=== PATIENT | male | born 1965 | race African-American/Black ===

== ENCOUNTER 2018-05-28 08:45 | Inpatient (IN) ==
[2018-05-28] MEDS ORDERED: ONDANSETRON 4 MG/2 ML VIAL IV PRN ×2 (09:34→12:18)
[2018-05-28 10:26] LABS: Basophils % 0.2 % (0.0-0.8); Eosinophils % 0.6 % (0.00-10.9); Hematocrit 47.3 VOL% (42.0-52.0); Hemoglobin 15.8 GM/DL (14.0-18.0); Immature Granulocytes % 0.4 %; Immature Granulocytes Absolute 0.02 #; Lymphocytes # 0.6 10*3/uL (1.4-4.0); Lymphocytes % 11.5 % (21.2-54.2); Mean Corpuscular HGB Conc 33.4 GM/DL (32-36); Mean Corpuscular Hemoglobin 30 PG (27-34); Mean Corpuscular Volume 89.2 FL (87-102); Mean Platelet Volume 10.8 FL (9.6-12.0); Monocytes # 0.3 10*3/uL (0.11-0.8); Monocytes % 5.4 % (1.7-12.7); Neutrophils # 4.3 10*3/uL (1.4-7.4); Neutrophils % 81.9 % (38.7-73.9); Platelet Count 167 T/CUMM (130-400); Red Cell Distribution Width 12.1 % (9.3-17.3); White Blood Count 5.2 T/CUMM (4-12)
[2018-05-28 10:32] LABS: PT Patient Result 10.9 SECS; Partial Thromboplastin Time 21.2 SECS (0-40)
[2018-05-28 10:39] LABS: Apearance,Urine CLEAR (Clear); Bilirubin,Urine Negative (Negative); Blood, Urine Negative (Negative); Glucose,Urine (UA) >=500 mg/dL (Negative); Ketones,Urine 5 mg/dL (Negative); Mucus,Urine Occasional /LPF (Occasional); Nitrite,Urine Negative (Negative); Protein,Urine Negative; RBC,Urine <1 /HPF (0-4); Squamous Epithelial Cell,Urine Occasional /HPF (0-10); Urine Color Yellow (Yellow); Urine Specific Gravity 1.018 (1.001-1.035); Urine Urobilinogen < 2.0 EU/DL (0.2-1.0); WBC,Urine <1 /HPF (0-6)
[2018-05-28 10:40] LABS: Alanine Aminotransferase 23 U/L (16-61); Albumin 3.8 G/DL (3.4-5.0); Alkaline Phosphatase 193 U/L (45-117); Aspartate Amino Transferase 17 U/L (0-37); Blood Urea Nitrogen 10 MG/DL (7-18); Calcium 8.4 MG/DL (8.5-10.1); Glucose 217 MG/DL (74-106); Potassium 4.1 MMOL/L (3.5-5.1); Sodium 136 MMOL/L (136-145); Total Protein 7.6 G/DL (6.4-8.3)
[2018-05-28 11:07] LABS: Barbiturates Screen,Urine Negative (Negative); Benzodiazepines Screen,Urine Negative (Negative); Cannabinoid Screen,Urine Negative (Negative); Opiate Screen,Urine Positive (Negative); Phencyclidine Screen,Urine Negative (Negative)
[2018-05-28] MEDS ORDERED: LABETALOL 20 MG/4 ML SYRINGE IV PRN (12:22)
[2018-05-28] MEDS ORDERED: ENOXAPARIN 40 MG/0.4 ML SYRINGE SUBCUT SCH (12:30)
[2018-05-28 13:05] LABS: Risk Ratio 4.33; VLDL CHOLESTEROL 17.4 MG/DL
[2018-05-28] MEDS: ACETAMINOPHEN 325 MG TABLET PO PRN (15:13)
[2018-05-28] MEDS: SODIUM CHLORIDE 0.9% 1,000 ML IV SCH ×2 (15:15→23:30)
[2018-05-28] MEDS ORDERED: GLUCAGON 1 MG VIAL IM PRN (15:44)
[2018-05-28] MEDS ORDERED: DEXTROSE 50% 25 GM/50 ML SYRINGE IV PRN (15:44)
[2018-05-28] MEDS: NEBIVOLOL 10 MG TABLET PO SCH (16:55)
[2018-05-28] MEDS: amLODIPine 5 MG TABLET PO SCH (16:56)
[2018-05-28] MEDS: glyBURIDE 5 MG TABLET PO SCH (18:16)
[2018-05-28] MEDS: levETIRAcetam 250 MG TABLET PO SCH (20:27)
[2018-05-28] MEDS: PHENYTOIN ER 100 MG CAPSULE PO SCH (20:27)
[2018-05-28] MEDS: ENOXAPARIN 40 MG/0.4 ML SYRINGE SUBCUT SCH (20:27)
[2018-05-29 05:00] LABS: Basophils % 0.2 % (0.0-0.8); Eosinophils % 0.5 % (0.00-10.9); Hematocrit 45.3 VOL% (42.0-52.0); Hemoglobin 15.3 GM/DL (14.0-18.0); Immature Granulocytes % 0.2 %; Immature Granulocytes Absolute 0.01 #; Lymphocytes # 0.9 10*3/uL (1.4-4.0); Lymphocytes % 15.7 % (21.2-54.2); Mean Corpuscular HGB Conc 33.8 GM/DL (32-36); Mean Corpuscular Hemoglobin 30 PG (27-34); Mean Corpuscular Volume 88.5 FL (87-102); Monocytes # 0.5 10*3/uL (0.11-0.8); Monocytes % 9.4 % (1.7-12.7); Neutrophils # 4.2 10*3/uL (1.4-7.4); Platelet Count 195 T/CUMM (130-400); Red Blood Count 5.12 MC/CUMM (3.8-5.5); Red Cell Distribution Width 11.9 % (9.3-17.3); White Blood Count 5.7 T/CUMM (4-12)
[2018-05-29 05:21] LABS: Calcium 8.4 MG/DL (8.5-10.1); Osmolality,Calculated 275.7 MOS/KG (273-304); Potassium 3.4 MMOL/L (3.5-5.1)
[2018-05-29] MEDS: NEBIVOLOL 10 MG TABLET PO SCH (08:46)
[2018-05-29] MEDS: PHENYTOIN ER 100 MG CAPSULE PO SCH ×2 (08:46→20:22)
[2018-05-29] MEDS: OLMESARTAN 20 MG TABLET PO SCH (08:46)
[2018-05-29] MEDS: levETIRAcetam 250 MG TABLET PO SCH ×2 (08:47→20:22)
[2018-05-29] MEDS: ASPIRIN EC 81 MG TABLET PO SCH (08:47)
[2018-05-29] MEDS: PANTOPRAZOLE 40 MG TABLET PO SCH (08:47)
[2018-05-29] MEDS: amLODIPine 5 MG TABLET PO SCH (08:47)
[2018-05-29] MEDS: glyBURIDE 5 MG TABLET PO SCH ×2 (08:48→18:26)
[2018-05-29] MEDS: SODIUM CHLORIDE 0.9% 1,000 ML IV SCH (08:51)
[2018-05-29] MEDS ORDERED: CARVEDILOL 25 MG TABLET PO SCH (09:00)
[2018-05-29] MEDS: POTASSIUM CHLORIDE 20 MEQ TABLET PO PRN (14:47)
[2018-05-29] MEDS: ACETAMINOPHEN 325 MG TABLET PO PRN (15:50)
[2018-05-29] MEDS ORDERED: DEXTROSE 50% 25 GM/50 ML SYRINGE IV PRN (15:54)
[2018-05-29] MEDS ORDERED: GLUCAGON 1 MG VIAL IM PRN (15:54)
[2018-05-29] MEDS: CARVEDILOL 12.5 MG TABLET PO SCH (20:23)
[2018-05-29] MEDS: ENOXAPARIN 40 MG/0.4 ML SYRINGE SUBCUT SCH (20:23)
[2018-05-30] MEDS: OLMESARTAN 20 MG TABLET PO SCH (09:19)
[2018-05-30] MEDS: glyBURIDE 5 MG TABLET PO SCH ×2 (09:20→17:07)
[2018-05-30] MEDS: SIMVASTATIN 40 MG TABLET PO SCH (09:20)
[2018-05-30] MEDS: amLODIPine 10 MG TABLET PO SCH (09:20)
[2018-05-30] MEDS: POTASSIUM CHLORIDE 20 MEQ TABLET PO PRN ×3 (09:20→21:07)
[2018-05-30] MEDS: PANTOPRAZOLE 40 MG TABLET PO SCH (09:21)
[2018-05-30] MEDS: ASPIRIN EC 81 MG TABLET PO SCH (09:21)
[2018-05-30] MEDS: CARVEDILOL 12.5 MG TABLET PO SCH (09:21)
[2018-05-30] MEDS: PHENYTOIN ER 100 MG CAPSULE PO SCH ×2 (09:24→21:06)
[2018-05-30] MEDS: levETIRAcetam 250 MG TABLET PO SCH ×2 (09:24→21:06)
[2018-05-30] MEDS: NEBIVOLOL 10 MG TABLET PO SCH (09:24)
[2018-05-30] MEDS: BUTALBITAL/ACETAMIN/CAFFEINE 50-325-40 MG TABLET PO PRN ×2 (11:39→17:07)
[2018-05-30] MEDS: DOXAZOSIN 1 MG TABLET PO SCH ×2 (11:39→21:05)
[2018-05-30] MEDS: SODIUM CHLORIDE 0.9% 1,000 ML IV SCH (17:07)
[2018-05-30] MEDS: ENOXAPARIN 40 MG/0.4 ML SYRINGE SUBCUT SCH (21:05)
[2018-05-30] MEDS: CARVEDILOL 25 MG TABLET PO SCH (21:06)
[2018-05-31] MEDS: SODIUM CHLORIDE 0.9% 1,000 ML IV SCH ×2 (01:20→11:35)
[2018-05-31] MEDS: glyBURIDE 5 MG TABLET PO SCH ×2 (08:56→17:00)
[2018-05-31] MEDS: OLMESARTAN 20 MG TABLET PO SCH (08:56)
[2018-05-31] MEDS: levETIRAcetam 250 MG TABLET PO SCH ×2 (08:57→20:43)
[2018-05-31] MEDS: ASPIRIN EC 81 MG TABLET PO SCH (08:57)
[2018-05-31] MEDS: PHENYTOIN ER 100 MG CAPSULE PO SCH ×2 (08:57→20:44)
[2018-05-31] MEDS: NEBIVOLOL 10 MG TABLET PO SCH (08:57)
[2018-05-31] MEDS: CARVEDILOL 25 MG TABLET PO SCH ×2 (08:58→20:44)
[2018-05-31] MEDS: PANTOPRAZOLE 40 MG TABLET PO SCH (08:58)
[2018-05-31] MEDS: SIMVASTATIN 40 MG TABLET PO SCH (08:58)
[2018-05-31] MEDS: DOXAZOSIN 1 MG TABLET PO SCH (08:59)
[2018-05-31] MEDS: amLODIPine 10 MG TABLET PO SCH (08:59)
[2018-05-31] MEDS: BUTALBITAL/ACETAMIN/CAFFEINE 50-325-40 MG TABLET PO PRN ×2 (09:01→14:35)
[2018-05-31] MEDS: ENOXAPARIN 40 MG/0.4 ML SYRINGE SUBCUT SCH (20:46)
[2018-06-01 05:24] LABS: Basophils % 0.3 % (0.0-0.8); Eosinophils # 0.1 10*3/uL (0.0-0.87); Eosinophils % 1.6 % (0.00-10.9); Hematocrit 42.7 VOL% (42.0-52.0); Hemoglobin 14.4 GM/DL (14.0-18.0); Immature Granulocytes % 0.5 %; Immature Granulocytes Absolute 0.02 #; Lymphocytes # 0.8 10*3/uL (1.4-4.0); Lymphocytes % 19.9 % (21.2-54.2); Mean Corpuscular HGB Conc 33.7 GM/DL (32-36); Mean Corpuscular Hemoglobin 30 PG (27-34); Mean Corpuscular Volume 88.2 FL (87-102); Mean Platelet Volume 10.9 FL (9.6-12.0); Monocytes # 0.5 10*3/uL (0.11-0.8); Monocytes % 12.4 % (1.7-12.7); Neutrophils # 2.5 10*3/uL (1.4-7.4); Neutrophils % 65.3 % (38.7-73.9); Platelet Count 180 T/CUMM (130-400); Red Blood Count 4.84 MC/CUMM (3.8-5.5); Red Cell Distribution Width 11.9 % (9.3-17.3); White Blood Count 3.9 T/CUMM (4-12)
[2018-06-01 05:38] LABS: Calcium 8.5 MG/DL (8.5-10.1); Potassium 3.3 MMOL/L (3.5-5.1)
[2018-06-01] MEDS: PHENYTOIN ER 100 MG CAPSULE PO SCH ×2 (08:54→22:14)
[2018-06-01] MEDS: CARVEDILOL 25 MG TABLET PO SCH ×2 (08:55→22:15)
[2018-06-01] MEDS: ASPIRIN EC 81 MG TABLET PO SCH (08:55)
[2018-06-01] MEDS: BUTALBITAL/ACETAMIN/CAFFEINE 50-325-40 MG TABLET PO PRN (08:55)
[2018-06-01] MEDS: amLODIPine 10 MG TABLET PO SCH (08:55)
[2018-06-01] MEDS: SIMVASTATIN 40 MG TABLET PO SCH (08:56)
[2018-06-01] MEDS: OLMESARTAN 20 MG TABLET PO SCH (08:56)
[2018-06-01] MEDS: POTASSIUM CHLORIDE 20 MEQ TABLET PO PRN ×3 (08:56→17:35)
[2018-06-01] MEDS: PANTOPRAZOLE 40 MG TABLET PO SCH (08:56)
[2018-06-01] MEDS: glyBURIDE 5 MG TABLET PO SCH ×2 (08:56→17:34)
[2018-06-01] MEDS: levETIRAcetam 250 MG TABLET PO SCH ×2 (08:56→22:15)
[2018-06-01] MEDS ORDERED: LISINOPRIL 5 MG TABLET PO SCH (09:00)
[2018-06-01] MEDS: DOCUSATE SODIUM 100 MG CAPSULE PO SCH ×2 (12:22→22:14)
[2018-06-01] MEDS: POLYETHYLENE GLYCOL POWDER 17 GM PACK PO SCH (12:22)
[2018-06-01] MEDS ORDERED: DOXAZOSIN 4 MG TABLET PO SCH (21:00)
[2018-06-01] MEDS ORDERED: DOXAZOSIN 2 MG TABLET PO SCH (21:00)
[2018-06-01] MEDS ORDERED: DOXAZOSIN 1 MG TABLET PO SCH (21:00)
[2018-06-01] MEDS ORDERED: ATORVASTATIN 40 MG TABLET PO SCH (21:00)
[2018-06-01] MEDS ORDERED: ROSUVASTATIN 20 MG TABLET PO SCH (21:00)
[2018-06-01] MEDS: LISINOPRIL 5 MG TABLET PO SCH (22:14)
[2018-06-01] MEDS: ENOXAPARIN 40 MG/0.4 ML SYRINGE SUBCUT SCH (22:15)
[2018-06-02] MEDS ORDERED: MAGNESIUM CITRATE 300 ML BOTTLE PO PRN (07:23)
[2018-06-02] MEDS ORDERED: POTASSIUM CHLORIDE 20 MEQ TABLET PO ONE (07:39)
[2018-06-02] MEDS: levETIRAcetam 250 MG TABLET PO SCH (09:13)
[2018-06-02] MEDS: ASPIRIN EC 81 MG TABLET PO SCH (09:14)
[2018-06-02] MEDS: glyBURIDE 5 MG TABLET PO SCH (09:14)
[2018-06-02] MEDS: amLODIPine 10 MG TABLET PO SCH (09:14)
[2018-06-02] MEDS: CARVEDILOL 25 MG TABLET PO SCH (09:15)
[2018-06-02] MEDS: PANTOPRAZOLE 40 MG TABLET PO SCH (09:16)
[2018-06-02] MEDS: POLYETHYLENE GLYCOL POWDER 17 GM PACK PO SCH (09:16)
[2018-06-02] MEDS: LISINOPRIL 5 MG TABLET PO SCH (09:16)
[2018-06-02] MEDS: OLMESARTAN 20 MG TABLET PO SCH (09:16)
[2018-06-02] MEDS: PHENYTOIN ER 100 MG CAPSULE PO SCH (09:16)
[2018-06-02] MEDS: DOCUSATE SODIUM 100 MG CAPSULE PO SCH (09:16)
[2018-06-02] MEDS ORDERED: BISACODYL 10 MG SUPP RECTAL ONE (11:18)
[2018-06-02 12:36] VITALS: BP 137/74
[2018-06-02] MEDS ORDERED: DOCUSATE SODIUM 100 MG CAPSULE PO SCH (21:00)
[2018-06-02] MEDS ORDERED: POLYETHYLENE GLYCOL POWDER 17 GM PACK PO SCH (21:00)
[2018-06-02] MEDS ORDERED: LACTULOSE 20 GM/30 ML UDCUP PO SCH (21:00)
== END 2018-06-02 13:35 | DRG 65 ==
LOC: N.ED 08:45 → SUATTDRO 12:18 → N.4E 12:18
PROVIDERS: ADMIT Nurse Practitioner Family; ATTEND Hospitalist